=== PATIENT | male | born 1975 | race Asian ===

== ENCOUNTER 2022-10-26 13:54 | Emergency (ER) | payer OTHER, SELFPAY ==
[2022-10-26] VITALS (11 sets, daily range): BP systolic 109–130; BP diastolic 71–87; PULSE 70–84; RESP 12–19; TEMP 36.4; O2SAT 95–100; BMI 25.7
--- NOTE | 2022-10-26 14:11 | DI.RAD.S_ITS ---
PROCEDURE: XR CHEST 1V INDICATIONS: SOB TECHNIQUE: One view of the chest was acquired. COMPARISON: [facility], , CHEST 1 VIEW, 11/06/2008, 20:32. FINDINGS: Surgical changes and devices: None. Lungs and pleura: Lungs are clear. No pleural effusions or pneumothorax. Mediastinum: Mediastinal contours appear normal. Heart size is normal. Bones and chest wall: No suspicious bony lesions. Overlying soft tissues appear unremarkable. IMPRESSION: No acute process. Dictated by: Pio Ashford M.D. on 10/26/2022 at 14:32 Approved by: Pio Ashford M.D. on 10/26/2022 at 14:32
[2022-10-26 15:24] LABS: Influenza A - CEPHEID Flu A NEGATIVE (NEGATIVE); Influenza B - CEPHEID Flu B NEGATIVE (NEGATIVE); Respiratory Syncytial Virus Negative (Negative)
--- NOTE | 2022-10-26 15:25 | ED_ITS ---
HPI - Chest Pain General Chief Complaint: Chest Pain Stated Complaint: SOB, WEAKNESS, RASH ON BACK Time Seen by Provider: 10/26/22 14:11 Source: patient and family Mode of arrival: Ambulatory Limitations: no limitations History of Present Illness HPI narrative: Patient is a 47-year-old male who is here for evaluation of occasional shortness of breath with exertion and weakness over the past couple days. He states he is feeling like he is having some body aches. He did start to develop a rash on his back over the past couple days as well. No fevers. He states that his symptoms are better when he is sitting down. Has not tried anything for symptoms prior to arrival. Related Data Home Medications Medication Instructions Recorded Confirmed CETIRIZINE HCL/PSEUDOEPHEDRINE 1 tab PO QDAY ##0 08/31/11 (ZYRTEC-D 12HR) Previous Rx's Medication Instructions Recorded acyclovir 800 mg tablet 800 mg PO 5XD 7 days #35 tabs 10/26/22 Review of Systems Constitutional Constitutional: Reports system reviewed and no additional complaints, except as documented Cardiovascular Cardiovascular: Reports system reviewed and no additional complaints, except as documented Respiratory Respiratory: Reports system reviewed and no additional complaints, except as documented Gastrointestinal Gastrointestinal: Reports system reviewed and no additional complaints, except as documented Integumentary/Breasts Skin/Breast: Reports system reviewed and no additional complaints, except as documented Hematologic/Lymphatic On Anticoagulants: No Patient History Social History Smoking Status: Current every day smoker Smoking Status: Current every day smoker tobacco type: vaping alcohol intake frequency: a few times a month Substance Use Type: does not use Exam Initial Vital Signs Initial Vital Signs: Vital Signs Temperature 97.6 F 10/26/22 14:10 Pulse Rate 84 10/26/22 14:10 Respiratory Rate 18 10/26/22 14:10 Blood Pressure 115/71 10/26/22 14:10 Pulse Oximetry 100 10/26/22 14:10 Oxygen Delivery Method Room Air 10/26/22 14:10 Const General: cooperative, comfortable and No ill appearing HENMT Head: normal to inspection and normocephalic Resp Effort & Inspection: normal respiratory effort Auscultation: clear to auscultation bilaterally Cardio Rate: regular rate Rhythm: regular rhythm GI Inspection: normal to inspection Skin Other: Patient with a vesicular rash on his right upper back consistent with zoster Course Orders Ordered: ED Orders 10/26/22 14:09 EKG-12 Lead Stat 10/26/22 14:11 XR chest 1V Stat 10/26/22 14:30 Covid-19 + FLU A/B + RSV - PCR Stat Vital Signs Vital signs: Vital Signs - 8 hr 10/26/22 14:10 10/26/22 14:13 10/26/22 14:14 Temperature 97.6 F Pulse Rate 84 73 Respiratory Rate 18 15 Blood Pressure 115/71 115/71 Pulse Oximetry 100 99 Oxygen Delivery Method Room Air 10/26/22 14:14 10/26/22 14:15 10/26/22 14:15 Temperature Pulse Rate 72 70 Respiratory Rate 12 14 Blood Pressure 109/74 Pulse Oximetry 100 99 Oxygen Delivery Method 10/26/22 14:30 10/26/22 14:30 10/26/22 14:45 Temperature Pulse Rate 82 Respiratory Rate 18 Blood Pressure 130/87 119/80 Pulse Oximetry 97 Oxygen Delivery Method 10/26/22 14:45 10/26/22 15:00 10/26/22 15:00 Temperature Pulse Rate 75 75 Respiratory Rate 15 18 Blood Pressure 120/83 Pulse Oximetry 97 95 Oxygen Delivery Method 10/26/22 15:15 10/26/22 15:15 10/26/22 15:30 Temperature Pulse Rate 71 Respiratory Rate 18 Blood Pressure 116/77 120/79 Pulse Oximetry 96 Oxygen Delivery Method 10/26/22 15:30 Temperature Pulse Rate 76 Respiratory Rate 13 Blood Pressure Pulse Oximetry 97 Oxygen Delivery Method MDM - Chest Pain Lab Data Attestation: I reviewed the patient's lab results. Labs: Lab Results 10/26/22 Range/Units 14:30 SARS-CoV-2 (PCR) Negative (Negative) Influenza A (RT-PCR) Flu a negative (NEGATIVE) Influenza B (RT-PCR) Flu b negative (NEGATIVE) RSV (PCR) Negative (Negative) Imaging Data Chest x-ray: Radiologist's Impression: PROCEDURE:? XR CHEST 1V ? INDICATIONS:? SOB ? TECHNIQUE:? One view of the chest was acquired.? ? COMPARISON:? [facility], , CHEST 1 VIEW, 11/06/2008, 20:32. ? FINDINGS:? ? Surgical changes and devices:? None.? ? Lungs and pleura:? Lungs are clear.? No pleural effusions or pneumothorax.? ? Mediastinum:? Mediastinal contours appear normal.? Heart size is normal.? ? Bones and chest wall:? No suspicious bony lesions.? Overlying soft tissues appear unremarkable.? ? ? IMPRESSION:? No acute process. ECG Data Attestation: I personally reviewed and interpreted this ECG as follows: Interpretation: Sinus rhythm Ventricular rate is 78 Normal axis Normal QRS Normal QTC next no ST T wave changes MDM Narrative Medical decision making narrative: Chest x-ray is negative, EKG is unremarkable, COVID is negative. He does have a rash on his right upper back that is consistent with shingles. I suspect that this is what is causing his fatigue. I have low suspicion for ACS. Low suspicion for pneumonia. Will discharge patient home with prescriptions for treatment of shingles. He was given return precautions. He expressed understanding and agreement. Discharge Plan Departure Patient Disposition: Home Clinical Impression: Shingles, Shortness of breath Instructions: DI for Shingles Activity Restrictions/Additional Instructions: I do recommend that you take the antiviral medication as directed. Contact your primary doctor for a follow-up. Return to the emergency department for new or worsening symptoms. Prescriptions: New acyclovir 800 mg tablet 800 mg PO 5XD 7 Days Qty: 35 0RF Rx Instructions: space evenly during waking hours No Action CETIRIZINE HCL/PSEUDOEPHEDRINE (ZYRTEC-D 12HR) 1 tab PO QDAY Qty: 0 Referrals: Roxanne Coley PA-C [Primary Care Provider] - Stand Alone Forms: Patient Portal/API
[2022-10-26 15:38] LABS: COVID-19 CEPHEID 4-PLEX PCR Negative (Negative)
[2022-10-26] MEDS: ACYCLOVIR 400 MG TABLET 800 MG PO (16:05)
== END 2022-10-26 16:12 | disposition home or self-care (01) ==
PROVIDERS: Emergency Provider Emergency Medicine; Family Provider Family Medicine; PCP Physician Assistant
DX: B02.9 Zoster without complications (principal); R06.02 Shortness of breath; R07.9 Chest pain, unspecified; Z20.822 Contact with and (suspected) exposure to COVID-19
CPT/HCPCS: 0241U; 36415; 71045; 93005; 99283; 99284

== ENCOUNTER → 2022-12-25 12:16 | Outpatient (CLI) | payer OTHER, SELFPAY ==
--- NOTE | 2022-12-25 | DI.CT.S_ITS ---
PROCEDURE: CT SOFT TISSUE NECK W CON INDICATIONS: enlarged lymph nodes TECHNIQUE: After the administration of intravenous contrast, 3.0 mm axial sections acquired from the sella to the aortic arch. Additional oblique axial 3.0 mm sections acquired through the pharynx. 3 mm thick coronal and sagittal reformats were generated. For radiation dose reduction, the following was used: automated exposure control. COMPARISON: None. FINDINGS: Image quality: Excellent. Lymph nodes: No enlarged lymph nodes seen throughout the neck. Prominent lymph nodes are seen throughout the bilateral neck. Vessels: Visualized vasculature appears patent. Neck spaces: The oropharynx, nasopharynx, and pharynx demonstrate no mucosal lesions. The vocal cords, false vocal cords, pyriform sinuses, epiglottis, vallecula, and tongue base all appear normal. Extramucosal spaces appear unremarkable. Bilateral palatine tonsilliths. Glands: The parotid and submandibular glands appear normal. Thyroid gland is unremarkable. Miscellaneous: Visualized brain and orbits appear normal. Lung apices appear clear. Superficial soft tissues appear normal. Bones: No suspicious bony lesions. Visualized sinuses and mastoids appear unremarkable. Mild degenerative changes of the spine, most pronounced at C4-C5. IMPRESSION: No enlarged lymph nodes are seen. Normal size and prominent lymph nodes are seen throughout the bilateral neck, more than normally expected. While this is a nonspecific finding and may be reactive, a lymphomatous process is not definitively excluded and clinical correlation follow-up is recommended. Dictated by: Jonathan Reeder M.D. on 12/25/2022 at 15:12 Approved by: Jonathan Reeder M.D. on 12/25/2022 at 15:16
--- NOTE | 2022-12-25 | DI.CT.S_ITS ---
PROCEDURE: CT FACIAL BONES WO CON INDICATIONS: jaw pain TECHNIQUE: Noncontrast 2.5 mm thick axial images acquired from the mandible through the frontal sinuses, with coronal and sagittal reformatting. For radiation dose reduction, the following was used: automated exposure control, adjustment of mA and/or kV according to patient size. COMPARISON: None. FINDINGS: Image quality: Excellent. Bones and teeth: Orbital stinson are intact. Sinus stinson show no fracture or deformity. Nasal bones and septum are intact. Visualized portions of the mandible demonstrate no fractures or subluxation. Zygomatic arches are intact. Pterygoid plates are intact. Visualized portions of the skull base and auditory canals are intact. 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 Sinuses: Paranasal sinuses are aerated, without fluid levels, mucosal thickening, or mucoceles. Mastoid air cells are aerated. Soft tissues: No edema, masses, or fluid collections. No enlarged lymph nodes. No soft tissue lacerations or debris. Vascular: Visualized vascular structures appear normal in the absence of contrast. Bony vascular foramina and canals are intact. 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 The right temporomandibular joint is normal appearance. Dictated by: Jonathan Reeder M.D. on 12/25/2022 at 14:53 Approved by: Jonathan Reeder M.D. on 12/25/2022 at 15:12
[2022-12-25 12:48] LABS: Estimated Glomerular Filt Rate > 60 mL/min (>60)
== END ==
PROVIDERS: Specialist; Family Provider Family Medicine; PCP Physician Assistant; Referring Provider Physician Assistant; Visit Provider Physician Assistant
DX: Q17.9 Congenital malformation of ear, unspecified (principal); R68.84 Jaw pain; R59.0 Localized enlarged lymph nodes; C85.90 Non-Hodgkin lymphoma, unspecified, unspecified site
CPT/HCPCS: 36415; 70486; 70491; 82565; Q9967